=== PATIENT | female | born 1980 | race Caucasian/White ===

== ENCOUNTER → 2021-02-20 | Outpatient (CLI) | payer BC ==
--- NOTE | 2021-02-20 15:16 | RAD ---
Site ID: [id number] EXAMINATION: US LIMITED ABDOMINAL DOPPLER. HISTORY: Reason: ABD PAIN COMPARISON: CTA of 01/24/21. TECHNIQUE: Mesenteric arterial ultrasound examination was performed, including spectral and waveform Doppler analysis of bilateral renal arteries. FINDINGS: Peak systolic velocity in the aorta is 157 cm/sec. No AAA. Minimal plaque. Peak systolic velocity in the celiac artery is 377 cm/sec and in the SMA is 231. IVC is patent. 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 No evidence of high-grade stenosis was seen on recent CTA however. Electronically signed by: Anthony Valencia MD (02/20/2021 3:14 PM) [id number]
== END ==
LOC: US 08:50
PROVIDERS: ATTEND Internal Medicine Gastroenterology
DX: R10.9 Unspecified abdominal pain (principal)
CPT/HCPCS: 93976